=== PATIENT | female | born 1990 | race Caucasian/White ===

== ENCOUNTER 2019-02-08 09:55 | Emergency (ER) | payer MEDICAID ==
[~2019-02-08] VITALS: Ht 152.4 cm; Wt 79.4 kg
[2019-02-08 10:04] VITALS: Ht 152.4 cm; Wt 79.4 kg
[2019-02-08 11:30] VITALS: BP 114/65
== END 2019-02-08 11:30 | disposition home or self-care (01) ==
LOC: ED 09:55
DX: O26.891 Other specified pregnancy related conditions, first trimester (principal); L50.0 Allergic urticaria; Z3A.11 11 weeks gestation of pregnancy